=== PATIENT | female | born 1940 | race Caucasian/White ===

== ENCOUNTER 2019-06-08 10:24 | Outpatient (RCR) | payer MEDICARE, OTHER, MEDICAID, SELFPAY | END 2019-06-30 00:01 | LOC: LAB 10:24 | PROVIDERS: Family Provider Family Medicine; Visit Provider Family Medicine | DX: I10 Essential (primary) hypertension (principal); E03.9 Hypothyroidism, unspecified | CPT/HCPCS: 36415; 80053; 80061; 84439; 84443; 85025 ==

== ENCOUNTER 2020-04-14 23:29 | Emergency (ER) | payer MEDICARE, MEDICAID, SELFPAY ==
[2020-04-14 23:31] VITALS: BP 126/87; PULSE 118; RESP 26; TEMP 39.9; O2SAT 90; BMI 27.8
--- NOTE | 2020-04-14 23:33 | XR_ITS ---
WS: [id number] Portable AP upright chest, 04/15/2020 Clinical Data: fever Comparison: Portable chest, 11/14/2015. Findings: No nodules, masses or effusions are seen. The heart is normal. The pulmonary vascularity is not increased. No pneumonia or pneumothorax is seen. The aortic arch and descending aorta show tortu osity. There are healed left third through fifth rib fractures. Monitor leads are on the chest wall. XR/XR chest 1V portable [id number] Impression: Atherosclerosis.
--- NOTE | 2020-04-14 23:33 | CTR_ITS ---
PROCEDURE INFORMATION: Exam: CT Abdomen And Pelvis With Contrast Exam date and time: 04/14/2020 12:09 AM Age: 79 years old Clinical indication: Fever TECHNIQUE: Imaging protocol: Computed tomography of the abdomen and pelvis with intravenous contrast. Radiation optimization: All CT scans at this facility use at least one of these dose optimization techniques: automated exposure control; mA and/or kV adjustment per patient size (includes targeted exams where dose is matched to clinical indication); or iterative reconstruction. Contrast material: OMNI 300; Contrast volume: 95 ml; Contrast route: INTRAVENOUS (IV); COMPARISON: No relevant prior studies available. RADIATION DOSE METRICS: Total DLP (mGy-cm): 1421.47 FINDINGS: Liver: Normal. No mass. Gallbladder and bile ducts: Normal. No calcified stones. No ductal dilation. Pancreas: Normal. No ductal dilation. Spleen: Normal. No splenomegaly. Adrenals: Normal. No mass. Kidneys and ureters: There is focal hypoattenuation and cortical irregularity seen within the upper pole of the left kidney posteriorly that likely represents scarring or chronic infarction. Stomach and bowel: Few diverticula are seen on the sigmoid colon. There are no inflammatory changes seen to suggest diverticulitis. Appendix: No evidence of appendicitis. Intraperitoneal space: Unremarkable. No free air. No significant fluid collection. Vasculature: Calcifications are seen within the abdominal aorta, iliac and femoral arteries bilaterally and within branches of the celiac trunk. Lymph nodes: Unremarkable. No enlarged lymph nodes. Urinary bladder: Unremarkable as visualized. Reproductive: There is a 1.5 x 1.5 x 1.8 cm hypoattenuation lesion seen within the uterine fundus anteriorly with central calcification possibly representing a calcifying uterine fibroid. Bones/joints: There is mild deformity of the superior endplates of L2 and L3 vertebral bodies likely representing chronic mild compression fractures. Soft tissues: Unremarkable. CT/CT abdomen pelvis w con* [id number] IMPRESSION: 1. Hypoattenuation lesions seen within the uterine fundus measuring up to 1.8 cm containing central calcification possibly representing a calcifying uterine fibroid. 2. Mild diverticulosis of the sigmoid colon 3. Focal cortical irregularity and hypoattenuation within the upper pole of the left kidney likely represents chronic scarring. Radiation Dose CTDIVOL = (mGy): DLP = 1421.47 (mGy-cm)
--- NOTE | 2020-04-14 23:37 | W.ED.ABDPA2 ---
HPI - Abdominal Pain General: Chief Complaint: Fever Stated Complaint: n/v fever Time Seen by Provider: 04/14/20 23:30 Mode of arrival: EMS Limitations: altered mental status History of Present Illness: HPI narrative: Juana is an 79-year-old female here from senior care. Patient has a history of stroke and is nonverbal and bedbound. No history is available from her. Per EMS senior care staff states she started vomiting tonight they checked her temperature and it was 103. Patient is unable to complain of any pain due to being nonverbal. States she has had no vomiting with them. She has had no cough. Review of Systems General: Reports: ROS unobtainable due to medical condition and ROS unobtainable due to mental status Physical Exam Const: COMMON NORMALS: no acute distress; negative for patient oriented x3 GENERAL APPEARANCE: ill appearing HENMT: COMMON NORMALS: normocephalic and atraumatic HEAD & SCALP: normocephalic and atraumatic Eye: COMMON NORMALS: Equal, round and reactive pupils present and EOMs intact bilaterally PUPIL: Yes Equal, round and reactive pupils present Neck/C-Spine: COMMON NORMALS: full ROM and supple Chest: COMMONS NORMALS: normal inspection of the chest and normal palpation of entire chest wall Resp: COMMON NORMALS: normal respiratory effort, No retractions, No use of accessory muscles and clear to auscultation bilaterally AUSCULTATION: clear to auscultation bilaterally Cardio: COMMON NORMALS: regular rate, regular rhythm and No murmurs present (Cardio) RATE: regular rate RHYTHM: regular rhythm GI: COMMON NORMALS: Normal to inspection, nondistended, normoactive bowel sounds present, Soft to palpation, non-tender and no masses PALPATION: Yes Soft to palpation Extremity: COMMON NORMALS: normal to inspection and full ROM Neuro: COMMON NORMALS: negative for patient oriented x3 Psych: COMMON NORMALS: cooperative; negative for mental status grossly normal and negative for Normal thought process present THOUGHT PROCESS: abnormal Skin: COMMON NORMALS: no rashes or lesions noted and no wounds GENERAL SKIN EXAM: no rashes or lesions noted Course Vital Signs: Vital signs: Vital Signs Temperature 101.2 F H 04/15/20 01:14 Pulse Rate 94 04/15/20 02:34 Respiratory Rate 18 04/15/20 02:34 Blood Pressure 121/78 04/15/20 02:34 Pulse Oximetry 99 04/15/20 01:14 MDM - Abdominal Pain MDM Narrative: Medical decision making narrative: Juana presents here with fever and does have a urinary tract infection. Patient blood work here is normal and she is not septic. She is well-appearing here and stable for discharge back to the senior care on antibiotics. We will culture her urine. senior living is to have her follow-up with her PCP in 3 to 5 days and return to ER if worsening. Lab Data: Labs: Lab Results 04/14/20 04/14/20 04/15/20 Range/Units 23:55 23:55 00:02 WBC 6.1 (4.0-10.0) 10^3/ uL RBC 5.33 H (4.1-5.3) 10^6/u L Hgb 16.2 H (11.5-15.3) g/dL Hct 49.4 H (37.0-47.0) % MCV 92.7 (81-99) fL MCH 30.4 (28.0-34.0) pg MCHC 32.8 (30.0-36.0) g/dL RDW 12.7 (12.1-15.1) % Plt Count 173 (130-400) 10^3/c mm MPV 11.8 H (7.4-10.4) fL Neut % (Auto) 96.0 % Lymph % (Auto) 2.5 % Ventura % (Auto) 0.5 % Eos % (Auto) 0.0 % Baso % (Auto) 0.7 % Neut # (Auto) 5.82 (1.8-7.7) 10^3/u L Lymph # (Auto) 0.2 L (0.8-4.8) 10^3/u L Ventura # (Auto) 0.0 L (0.2-0.9) 10^3/u L Eos # (Auto) 0.0 (0.0-0.8) 10^3/u L Baso # (Auto) 0.0 (0.0-0.1) 10^3/u L Nucleated RBC % (a uto) 0 % Nucleated RBCs # 0.0 /100WBC Sodium 139 (136-145) mmol/L Potassium 3.6 (3.5-5.1) mmol/L Chloride 104 (98-107) mmol/L Carbon Dioxide 22 (22-29) mmol/L Anion Gap 16.6 (5-19) BUN 11 (8-23) mg/dL Creatinine 0.6 (0.5-0.9) mg/dL GFR Calculation Not Reportable Glucose 122 H (65-115) mg/dL Calculated Osmolal ity 289 (285-295) mOsm/k g Lactate 2.2 (0.5-2.2) mmol/L Calcium 9.1 (8.5-10.5) mg/dL Total Bilirubin 1.1 (0.15-1.2) mg/dL AST 62 H (0-32) U/L ALT 36 H (0-33) U/L Alkaline Phosphata se 189 H (35-105) IU/L Total Protein 6.6 (6.6-8.7) g/dL Albumin 3.8 (3.5-5.2) g/dL Globulin 2.8 (1.3-4.6) g/dL Urine Color (Yellow) Urine Appearance (CLEAR) Urine pH (5-7) Ur Specific Gravit y (1.005-1.030) Urine Protein (Negative) Urine Glucose (UA) (Normal) Urine Ketones (Negative) Urine Blood (Negative) Urine Nitrate (Negative) Urine Bilirubin (Negative) Urine Urobilinogen (Negative) mg/dL Ur Leukocyte Odalys ase (Negative) Urine RBC (0-2) /hpf Urine WBC (0-5) /hpf Ur Squamous Epith Cells (0-5) /hpf Amorphous Sediment Urine Bacteria (NONE) /hpf Urine Mucus /hpf SARS-CoV-2 Ag (Rap id) (Negative) 04/15/20 04/15/20 Range/Units 00:17 00:22 WBC (4.0-10.0) 10^3/ uL RBC (4.1-5.3) 10^6/u L Hgb (11.5-15.3) g/dL Hct (37.0-47.0) % MCV (81-99) fL MCH (28.0-34.0) pg MCHC (30.0-36.0) g/dL RDW (12.1-15.1) % Plt Count (130-400) 10^3/c mm MPV (7.4-10.4) fL Neut % (Auto) % Lymph % (Auto) % Ventura % (Auto) % Eos % (Auto) % Baso % (Auto) % Neut # (Auto) (1.8-7.7) 10^3/u L Lymph # (Auto) (0.8-4.8) 10^3/u L Ventura # (Auto) (0.2-0.9) 10^3/u L Eos # (Auto) (0.0-0.8) 10^3/u L Baso # (Auto) (0.0-0.1) 10^3/u L Nucleated RBC % (a uto) % Nucleated RBCs # /100WBC Sodium (136-145) mmol/L Potassium (3.5-5.1) mmol/L Chloride (98-107) mmol/L Carbon Dioxide (22-29) mmol/L Anion Gap (5-19) BUN (8-23) mg/dL Creatinine (0.5-0.9) mg/dL GFR Calculation Glucose (65-115) mg/dL Calculated Osmolal ity (285-295) mOsm/k g Lactate (0.5-2.2) mmol/L Calcium (8.5-10.5) mg/dL Total Bilirubin (0.15-1.2) mg/dL AST (0-32) U/L ALT (0-33) U/L Alkaline Phosphata se (35-105) IU/L Total Protein (6.6-8.7) g/dL Albumin (3.5-5.2) g/dL Globulin (1.3-4.6) g/dL Urine Color Yellow (Yellow) Urine Appearance Cloudy (CLEAR) Urine pH 5 (5-7) Ur Specific Gravit y 1.005 (1.005-1.030) Urine Protein Neg (Negative) Urine Glucose (UA) Norm (Normal) Urine Ketones 1+ H (Negative) Urine Blood 3+ H (Negative) Urine Nitrate Positive H (Negative) Urine Bilirubin 1+ H (Negative) Urine Urobilinogen 4 H (Negative) mg/dL Ur Leukocyte Odalys ase 2+ H (Negative) Urine RBC 0-4 H (0-2) /hpf Urine WBC 80-100 H (0-5) /hpf Ur Squamous Epith Cells 5-10 H (0-5) /hpf Amorphous Sediment Not Reportable Urine Bacteria 2+ H (NONE) /hpf Urine Mucus 2+ /hpf SARS-CoV-2 Ag (Rap id) Negative (Negative) Imaging Data ^: CT Abd/Pel: Attestation: I personally reviewed and interpreted this imaging study as follows: Radiologist's impression: [facility] [address] [place] [address] CT Scan Report Signed Patient: Juana Ruiz Unit #: [id number] : 1940 Age/Sex: 79 / F ADM Date: 04/14/20 Loc: ER Room/Bed: Attending Dr: Ordering Provider/Ordering MD: Ham Booth MD Date of Service: 04/14/20 Procedure(s): CT abdomen pelvis w con* [id number] Accession Number(s): [id number] Report Number: [id number] PROCEDURE INFORMATION: Exam: CT Abdomen And Pelvis With Contrast Exam date and time: 04/14/2020 12:09 AM Age: 79 years old Clinical indication: Fever TECHNIQUE: Imaging protocol: Computed tomography of the abdomen and pelvis with intravenous contrast. Radiation optimization: All CT scans at this facility use at least one of these dose optimization techniques: automated exposure control; mA and/or kV adjustment per patient size (includes targeted exams where dose is matched to clinical indication); or iterative reconstruction. Contrast material: OMNI 300; Contrast volume: 95 ml; Contrast route: INTRAVENOUS (IV); COMPARISON: No relevant prior studies available. RADIATION DOSE METRICS: Total DLP (mGy-cm): 1421.47 FINDINGS: Liver: Normal. No mass. Gallbladder and bile ducts: Normal. No calcified stones. No ductal dilation. Pancreas: Normal. No ductal dilation. Spleen: Normal. No splenomegaly. Adrenals: Normal. No mass. Kidneys and ureters: There is focal hypoattenuation and cortical irregularity seen within the upper pole of the left kidney posteriorly that likely represents scarring or chronic infarction. Stomach and bowel: Few diverticula are seen on the sigmoid colon. There are no inflammatory changes seen to suggest diverticulitis. Appendix: No evidence of appendicitis. Intraperitoneal space: Unremarkable. No free air. No significant fluid collection. Vasculature: Calcifications are seen within the abdominal aorta, iliac and femoral arteries bilaterally and within branches of the celiac trunk. Lymph nodes: Unremarkable. No enlarged lymph nodes. Urinary bladder: Unremarkable as visualized. Reproductive: There is a 1.5 x 1.5 x 1.8 cm hypoattenuation lesion seen within the uterine fundus anteriorly with central calcification possibly representing a calcifying uterine fibroid. Bones/joints: There is mild deformity of the superior endplates of L2 and L3 vertebral bodies likely representing chronic mild compression fractures. Soft tissues: Unremarkable. CT/CT abdomen pelvis w con* [id number] IMPRESSION: 1. Hypoattenuation lesions seen within the uterine fundus measuring up to 1.8 cm containing central calcification possibly representing a calcifying uterine fibroid. 2. Mild diverticulosis of the sigmoid colon 3. Focal cortical irregularity and hypoattenuation within the upper pole of the left kidney likely represents chronic scarring. Discharge Plan Discharge Patient Disposition: Home Clinical Impression: Acute cystitis Qualifiers: Hematuria presence: without hematuria Qualified Code(s): N30.00 - Acute cystitis without hematuria Condition: Stable Prescriptions: New Zofran 4 mg tablet 4 mg PO QID PRN (Reason: nausea and vomiting) Qty: 14 RF: 0 Keflex 500 mg capsule 500 mg PO Q6H 7 Days Qty: 28 RF: 0 Discharge Orders: Discharge Order (Routine); Ordered 04/15/20 Ordered By: Ham Booth Discharge Diet: Advance as tolerated Discharge Activity: Resume usual activity Patient Instructions: Urinary Tract Infection in Women (ED) Discharge Date/Time: 04/15/20 03:11 Coding Level of Care Code ED Special Delivery Messenger for Chg Fwd Exam Comprehensive
[2020-04-15 00:14] LABS: Basophils % 0.7 %; Hematocrit 49.4 % (37.0-47.0); Hemoglobin 16.2 g/dL (11.5-15.3); Lymphocytes # 0.2 10^3/uL (0.8-4.8); Lymphocytes % 2.5 %; Mean Corpuscular HGB Conc 32.8 g/dL (30.0-36.0); Mean Corpuscular Hemoglobin 30.4 pg (28.0-34.0); Mean Corpuscular Volume 92.7 fL (81-99); Mean Platelet Volume 11.8 fL (7.4-10.4); Monocytes % 0.5 %; Neutrophils # 5.82 10^3/uL (1.8-7.7); Nucleated Red Blood Cells % 0 %; Platelet Count 173 10^3/cmm (130-400); Red Blood Count 5.33 10^6/uL (4.1-5.3); Red Cell Distribution Width 12.7 % (12.1-15.1); White Blood Count 6.1 10^3/uL (4.0-10.0)
[2020-04-15] MEDS: sodium chloride 0.9% 1,000 ML 999 ML IV (00:24)
[2020-04-15] MEDS: ondansetron 2 mg/ML SDV 2 mL 4 MG IVP (00:24)
[2020-04-15] MEDS: acetaminophen 650 mg Supp PR (00:24)
[2020-04-15 00:25] VITALS: BP 123/87; PULSE 109; RESP 20; O2SAT 96
[2020-04-15 00:35] LABS: Lactate (Lactic Acid level) 2.2 mmol/L (0.5-2.2)
[2020-04-15 00:39] LABS: Alanine Aminotransferase 36 U/L (0-33); Albumin Level 3.8 g/dL (3.5-5.2); Alkaline Phosphatase 189 IU/L (35-105); Blood Urea Nitrogen 11 mg/dL (8-23); Calcium 9.1 mg/dL (8.5-10.5); Carbon Dioxide 22 mmol/L (22-29); Chloride 104 mmol/L (98-107); Creatinine Clr Calc Pharmacy 57.1094; Globulin 2.8 g/dL (1.3-4.6); Glucose 122 mg/dL (65-115); Osmolality Calculated 289 mOsm/kg (285-295); Sodium 139 mmol/L (136-145); Total Bilirubin 1.1 mg/dL (0.15-1.2); Total Protein 6.6 g/dL (6.6-8.7)
[2020-04-15 00:42] LABS: Urine Appearance Cloudy (CLEAR); Urine Color Yellow (Yellow); pH Urine 5 (5-7)
[2020-04-15 00:43] LABS: Add Urine Microscopic? YES; Bilirubin Urine 1+ (Negative); Blood Urine 3+ (Negative); Glucose Urine UA Norm (Normal); Ketones Urine 1+ (Negative); Leukocyte Esterase Urine 2+ (Negative); Nitrate Urine Positive (Negative); Protein Urine Neg (Negative); Specific Gravity, Urine 1.005 (1.005-1.030); Urobilinogen Urine 4 mg/dL (Negative)
[2020-04-15 00:44] LABS: RBC Urine 0-4 /hpf (0-2); WBC Urine 80-100 /hpf (0-5)
[2020-04-15 00:45] LABS: Add Urine Culture? Yes; Bacteria Urine 2+ /hpf; Mucus Urine 2+ /hpf
[2020-04-15 00:47] LABS: SARS Covid-2 Antigen Negative (Negative)
[2020-04-15 00:58] LABS: Anion Gap 16.6 (5-19); Aspartate Amino Transferase 62 U/L (0-32); Potassium 3.6 mmol/L (3.5-5.1)
[2020-04-15] MEDS: cefTRIAXone 1,000 MG in sodium chloride 0.9% (plus) 50 ML 100 MG IV (01:04)
[2020-04-15 01:14] VITALS: BP 115/76; PULSE 108; RESP 18; TEMP 38.4; O2SAT 99
[2020-04-15 02:34] VITALS: BP 121/78; PULSE 94; RESP 18
--- NOTE | 2020-04-15 04:53 | PC.SOCIAL ---
Patient seen in ED for initial assessment. She lives at [facility], she has been there for several years. She was on services with [facility] at some point but according to SNF staff she is not currently on service. Advanced directive in paper chart. Being discharged back to facility.
[2020-04-16] MEDS: iohexol 300 mg/mL 100 mL Btl IV (11:57)
== END 2020-04-15 03:11 | disposition home or self-care (01) ==
PROVIDERS: Emergency Provider Emergency Medicine
DX: N30.00 Acute cystitis without hematuria (principal)
CPT/HCPCS: 12345; 36415; 71045; 74177; 80053; 81001; 83605; 85025; 87040; 87077; 87086; 87186; 87426; 96365; 96375; 99283; 99284; J0696; J2405; J7030

== ENCOUNTER 2020-04-15 18:00 | Inpatient (IN) | payer MEDICARE, MEDICAID, SELFPAY ==
[2020-04-15 18:09] VITALS: BP 95/61; PULSE 85; RESP 22; TEMP 37.2; O2SAT 94; BMI 28.3
--- NOTE | 2020-04-15 18:15 | XRR_ITS ---
PROCEDURE INFORMATION: Exam: XR Chest, 1 View Exam date and time: 04/15/2020 6:17 PM Age: 79 years old Clinical indication: Patient HX: Fever; Sepsis? . PT is not answering history questions. TECHNIQUE: Imaging protocol: XR of the chest Views: 1 view. COMPARISON: CR XR chest 1V portable [id number] 04/15/2020 12:49 AM FINDINGS: Lungs: Mild senile fibrosis. No consolidation. Pleural space: Unremarkable. No pleural effusion. No pneumothorax. Heart/Mediastinum: Mild cardiomegaly with arteriosclerosis. Bones/joints: Scoliotic curvature of the spine. Old left humeral head neck fracture. Age-appropriate degenerative disease. Old left rib fractures.- XR/XR chest 1V portable [id number] IMPRESSION: No acute findings.
--- NOTE | 2020-04-15 18:17 | ECG_ITS ---
[facility] Test Date: 2020-04-15 Pat Name: Juana Ruiz Department: Room: Gender: Female Manager Project Management: : 1940 Requested By: Юлия Marie Order Number: [id number] Berg MD: Elidia Dunbar M.D. Measurements Intervals [place] Rate: 84 P: 24 PA: 184 QRS: -50 QRSD: 118 T: -13 QT: 378 QTc: 448 Interpretive Statements SINUS RHYTHM INCOMPLETE RIGHT BUNDLE BRANCH BLOCK VOLTAGE CRITERIA FOR LVH POSSIBLE ANTERIOR MYOCARDIAL INFARCTION, PROBABLY OLD INFERIOR MYOCARDIAL INFARCTION,OF INDETERMINATE AGE Compared to ECG 11/14/2015 12:08:44 Low QRS voltage now present Incomplete right bundle-branch block now present Left ventricular hypertrophy now present Myocardial infarct finding now present Intraventricular conduction delay no longer present Electronically Signed On 04-15-2020 23:25:44 CDT by Elidia Dunbar M.D. [id number]
[2020-04-15] MEDS: vancomycin 1,000 MG in sodium chloride 0.9% 250 ML 250 MG IV (18:41)
[2020-04-15] MEDS: lactated ringers 1,000 ML 999 ML IV ×2 (18:41→19:47)
--- NOTE | 2020-04-15 18:54 | W.ED.RECABL ---
HPI - Recheck/Abnormal Lab/Rx General: Chief Complaint: Recheck/Abnormal Lab/Rx Stated Complaint: SEPSIS Time Seen by Provider: 04/15/20 18:11 Source: patient and EMS Mode of arrival: EMS Limitations: altered mental status History of Present Illness: HPI narrative: Patient is very sedated and hard to get history from. Patient was apparently here last night for symptoms of urinary tract infection. She started on Keflex and sent back to the snf. [facility] reports a fever of 103 along with decreasing mental status. Please see last night's note for more details. Unclear whether the patient was ever given a dose of Keflex. Review of Systems General: Reports: ROS unobtainable due to mental status Physical Exam Const: COMMON NORMALS: no acute distress, patient oriented x3 and alert GENERAL APPEARANCE: cooperative HENMT: COMMON NORMALS: normocephalic, atraumatic, external ears normal, EAC's normal and Normal external nose present HEAD & SCALP: normal to inspection, normocephalic and atraumatic FACE & SINUS: normal facial exam and face symmetric NOSE: Normal external nose present and Normal nares present EXTERNAL EAR: Yes external ears normal EXTERNAL AUDITORY CANAL: EAC's normal MOUTH: Normal oral and palatal mucosa present, lip normal and tongue normal Eye: COMMON NORMALS: Equal, round and reactive pupils present and conjunctivae normal GENERAL EYE: appearance normal, both eyes and all related structures ALIGNMENT: Yes alignment normal PERIORBITAL: periorbital findings normal EYELID: eyelids normal CONJUNCTIVA: Yes conjunctivae normal SCLERA: sclerae normal PUPIL: Yes Equal, round and reactive pupils present Neck/C-Spine: COMMON NORMALS: full ROM, no lymphadenopathy, supple, no meningeal signs and no JVD GENERAL: Yes normal visual inspection and Yes trachea midline Chest: COMMONS NORMALS: normal inspection of the chest and normal palpation of entire chest wall Resp: COMMON NORMALS: normal respiratory effort, No retractions, No use of accessory muscles and clear to auscultation bilaterally EFFORT & INSPECTION: Yes able to speak in complete sentences and Yes symmetric chest movement AUSCULTATION: clear to auscultation bilaterally, no crackles, no rales, no rhonchi and no wheezes Cardio: COMMON NORMALS: no JVD, regular rate, regular rhythm, S1 normal heart sound present and S2 normal heart sound present RATE: regular rate RHYTHM: regular rhythm HEART SOUNDS: S1 normal heart sound present, S2 normal heart sound present, no click, no gallops, no murmurs and no rubs GI: COMMON NORMALS: Soft to palpation and No hepatosplenomegaly present PALPATION: Yes Soft to palpation, No Tenderness to palpation present (GI), No Guarding due to palpation present (GI), No Rigid due to palpation, Yes No hepatosplenomegaly present, No Hernia present, No Palpable mass present and No Pulsatile mass present : COMMON NORMALS: Yes no CVA tenderness BLADDER/KIDNEY EXAM: Yes no CVA tenderness EXTERNAL FEMALE EXAM: No Hernia present Back/Pelvis: COMMON NORMALS: no CVA tenderness, thoracic and lumbar spine normal to inspection, no thoracic nor lumbar tenderness and thoraco-lumbar ROM normal Extremity: COMMON NORMALS: normal to inspection, full ROM, capillary refill normal, no joint enlargement, no clubbing, cyanosis or edema and no calf tenderness Neuro: COMMON NORMALS: patient oriented x3, CN's II-XII intact bilaterally, moves all extremities, no focal motor deficits and no sensory deficits noted SENSORIUM/ORIENTATION: Yes alert MENINGEAL SIGNS: Yes no meningeal signs SPEECH: speech normal Skin: COMMON NORMALS: no rashes or lesions noted, turgor normal, no jaundice, no petechiae and no mottling GENERAL SKIN EXAM: no rashes or lesions noted and turgor normal Course Vital Signs: Vital signs: Vital Signs Temperature 99.0 F 04/15/20 18:09 Pulse Rate 89 04/15/20 21:06 Respiratory Rate 24 H 04/15/20 21:06 Blood Pressure 109/64 04/15/20 21:06 Pulse Oximetry 93 04/15/20 21:06 MDM - Recheck/Abnormal Lab/Rx MDM Narrative: Medical decision making narrative: Patient appears septic from a urinary tract infection. She was placed on IV antibiotics by me. Give her a dose of Primaxin as her cultures are pending. Patient did have positive blood cultures for gram-negative rods. Case was endorsed to Dr. Lizama and he will arrange things further for the floor. Lab Data: Labs: Lab Results 04/15/20 04/15/20 04/15/20 Range/Units 18:50 18:58 18:58 WBC 22.5 H (4.0-10.0) 10^3/ uL RBC 4.32 (4.1-5.3) 10^6/u L Hgb 13.2 (11.5-15.3) g/dL Hct 42.1 (37.0-47.0) % MCV 97.5 D (81-99) fL MCH 30.6 (28.0-34.0) pg MCHC 31.4 (30.0-36.0) g/dL RDW 13.2 (12.1-15.1) % Plt Count 138 (130-400) 10^3/c mm MPV 12.0 H (7.4-10.4) fL Neut % (Auto) 86.7 % Lymph % (Auto) 5.8 % [place] % (Auto) 5.9 % Eos % (Auto) 0.2 % Baso % (Auto) 0.4 % Neut # (Auto) 19.53 H (1.8-7.7) 10^3/u L Lymph # (Auto) 1.3 (0.8-4.8) 10^3/u L [place] # (Auto) 1.3 H (0.2-0.9) 10^3/u L Eos # (Auto) 0.0 (0.0-0.8) 10^3/u L Baso # (Auto) 0.1 (0.0-0.1) 10^3/u L Nucleated RBC % (a uto) 0 % Nucleated RBCs # 0.0 /100WBC PT 15.30 H (12.1-14.9) SECO NDS INR 1.17 (0.8-1.2) Sodium (136-145) mmol/L Potassium (3.5-5.1) mmol/L Chloride (98-107) mmol/L Carbon Dioxide (22-29) mmol/L Anion Gap (5-19) BUN (8-23) mg/dL Creatinine (0.5-0.9) mg/dL GFR Calculation Glucose (65-115) mg/dL Calculated Osmolal ity (285-295) mOsm/k g Lactic Acid (0.5-2.2) mmol/L Calcium (8.5-10.5) mg/dL Magnesium (1.7-2.3) mg/dL Total Bilirubin (0.15-1.2) mg/dL AST (0-32) U/L ALT (0-33) U/L Alkaline Phosphata se (35-105) IU/L Troponin T Baselin e (0-10) ng/L Troponin T 120 Min [place] (0-10) ng/L Delta Troponin T (0-10) ABS# Total Protein (6.6-8.7) g/dL Albumin (3.5-5.2) g/dL Globulin (1.3-4.6) g/dL Lipase (13-60) U/L Urine Color (Yellow) Urine Appearance (CLEAR) Urine pH (5-7) Ur Specific Gravit y (1.005-1.030) Urine Protein (Negative) Urine Glucose (UA) (Normal) Urine Ketones (Negative) Urine Blood (Negative) Urine Nitrate (Negative) Urine Bilirubin (Negative) Urine Urobilinogen (Negative) mg/dL Ur Leukocyte Odalys ase (Negative) Urine RBC (0-2) /hpf Urine WBC (0-5) /hpf Ur Squamous Epith Cells (0-5) /hpf Amorphous Sediment Urine Bacteria (NONE) /hpf Urine Mucus /hpf Influenza Type A A g Negative (Negative) Influenza Type B A g Negative (Negative) 04/15/20 04/15/20 04/15/20 Range/Units 18:58 18:58 18:58 WBC (4.0-10.0) 10^3/ uL RBC (4.1-5.3) 10^6/u L Hgb (11.5-15.3) g/dL Hct (37.0-47.0) % MCV (81-99) fL MCH (28.0-34.0) pg MCHC (30.0-36.0) g/dL RDW (12.1-15.1) % Plt Count (130-400) 10^3/c mm MPV (7.4-10.4) fL Neut % (Auto) % Lymph % (Auto) % [place] % (Auto) % Eos % (Auto) % Baso % (Auto) % Neut # (Auto) (1.8-7.7) 10^3/u L Lymph # (Auto) (0.8-4.8) 10^3/u L [place] # (Auto) (0.2-0.9) 10^3/u L Eos # (Auto) (0.0-0.8) 10^3/u L Baso # (Auto) (0.0-0.1) 10^3/u L Nucleated RBC % (a uto) % Nucleated RBCs # /100WBC PT (12.1-14.9) SECO NDS INR (0.8-1.2) Sodium 139 (136-145) mmol/L Potassium 4.2 (3.5-5.1) mmol/L Chloride 104 (98-107) mmol/L Carbon Dioxide 25 (22-29) mmol/L Anion Gap 14.2 (5-19) BUN 14 (8-23) mg/dL Creatinine 0.7 (0.5-0.9) mg/dL GFR Calculation Not Reportable Glucose 95 (65-115) mg/dL Calculated Osmolal ity 288 (285-295) mOsm/k g Lactic Acid 2.0 (0.5-2.2) mmol/L Calcium 8.4 L (8.5-10.5) mg/dL Magnesium 2.1 (1.7-2.3) mg/dL Total Bilirubin 0.5 (0.15-1.2) mg/dL AST 28 (0-32) U/L ALT 29 (0-33) U/L Alkaline Phosphata se 128 H (35-105) IU/L Troponin T Baselin e 22 H (0-10) ng/L Troponin T 120 Min [place] (0-10) ng/L Delta Troponin T (0-10) ABS# Total Protein 5.3 L (6.6-8.7) g/dL Albumin 2.9 L (3.5-5.2) g/dL Globulin 2.4 (1.3-4.6) g/dL Lipase 14 (13-60) U/L Urine Color (Yellow) Urine Appearance (CLEAR) Urine pH (5-7) Ur Specific Gravit y (1.005-1.030) Urine Protein (Negative) Urine Glucose (UA) (Normal) Urine Ketones (Negative) Urine Blood (Negative) Urine Nitrate (Negative) Urine Bilirubin (Negative) Urine Urobilinogen (Negative) mg/dL Ur Leukocyte Odalys ase (Negative) Urine RBC (0-2) /hpf Urine WBC (0-5) /hpf Ur Squamous Epith Cells (0-5) /hpf Amorphous Sediment Urine Bacteria (NONE) /hpf Urine Mucus /hpf Influenza Type A A g (Negative) Influenza Type B A g (Negative) 04/15/20 04/15/20 Range/Units 19:06 20:50 WBC (4.0-10.0) 10^3/ uL RBC (4.1-5.3) 10^6/u L Hgb (11.5-15.3) g/dL Hct (37.0-47.0) % MCV (81-99) fL MCH (28.0-34.0) pg MCHC (30.0-36.0) g/dL RDW (12.1-15.1) % Plt Count (130-400) 10^3/c mm MPV (7.4-10.4) fL Neut % (Auto) % Lymph % (Auto) % [place] % (Auto) % Eos % (Auto) % Baso % (Auto) % Neut # (Auto) (1.8-7.7) 10^3/u L Lymph # (Auto) (0.8-4.8) 10^3/u L [place] # (Auto) (0.2-0.9) 10^3/u L Eos # (Auto) (0.0-0.8) 10^3/u L Baso # (Auto) (0.0-0.1) 10^3/u L Nucleated RBC % (a uto) % Nucleated RBCs # /100WBC PT (12.1-14.9) SECO NDS INR (0.8-1.2) Sodium (136-145) mmol/L Potassium (3.5-5.1) mmol/L Chloride (98-107) mmol/L Carbon Dioxide (22-29) mmol/L Anion Gap (5-19) BUN (8-23) mg/dL Creatinine (0.5-0.9) mg/dL GFR Calculation Glucose (65-115) mg/dL Calculated Osmolal ity (285-295) mOsm/k g Lactic Acid (0.5-2.2) mmol/L Calcium (8.5-10.5) mg/dL Magnesium (1.7-2.3) mg/dL Total Bilirubin (0.15-1.2) mg/dL AST (0-32) U/L ALT (0-33) U/L Alkaline Phosphata se (35-105) IU/L Troponin T Baselin e (0-10) ng/L Troponin T 120 Min [place] 23.20 H (0-10) ng/L Delta Troponin T 1.20 (0-10) ABS# Total Protein (6.6-8.7) g/dL Albumin (3.5-5.2) g/dL Globulin (1.3-4.6) g/dL Lipase (13-60) U/L Urine Color Yellow (Yellow) Urine Appearance Sl hazy (CLEAR) Urine pH 5 (5-7) Ur Specific Gravit y 1.020 (1.005-1.030) Urine Protein Neg (Negative) Urine Glucose (UA) Norm (Normal) Urine Ketones 1+ H (Negative) Urine Blood 3+ H (Negative) Urine Nitrate Positive H (Negative) Urine Bilirubin 1+ H (Negative) Urine Urobilinogen 8 H (Negative) mg/dL Ur Leukocyte Odalys ase Trace H (Negative) Urine RBC 10-15 H (0-2) /hpf Urine WBC 15-25 H (0-5) /hpf Ur Squamous Epith Cells 0-4 H (0-5) /hpf Amorphous Sediment Not Reportable Urine Bacteria 2+ H (NONE) /hpf Urine Mucus Trace /hpf Influenza Type A A g (Negative) Influenza Type B A g (Negative) Discharge Plan Discharge Patient Disposition: Admitted As Inpatient Admit Provider: Dyan Lizama Clinical Impression: Sepsis, Acute UTI Condition: Stable Coding Level of Care Code ED Retail Maintenance Technician for [facility] Fwd Exam Comprehensive
[2020-04-15 18:56] VITALS: BP 100/64; PULSE 85; RESP 18; O2SAT 94
[2020-04-15 19:11] LABS: Basophils # 0.1 10^3/uL (0.0-0.1); Basophils % 0.4 %; Eosinophils % 0.2 %; Hematocrit 42.1 % (37.0-47.0); Hemoglobin 13.2 g/dL (11.5-15.3); Lymphocytes # 1.3 10^3/uL (0.8-4.8); Lymphocytes % 5.8 %; Mean Corpuscular HGB Conc 31.4 g/dL (30.0-36.0); Mean Corpuscular Hemoglobin 30.6 pg (28.0-34.0); Mean Corpuscular Volume 97.5 fL (81-99); Monocytes # 1.3 10^3/uL (0.2-0.9); Monocytes % 5.9 %; Neutrophils # 19.53 10^3/uL (1.8-7.7); Neutrophils % 86.7 %; Nucleated Red Blood Cells % 0 %; Platelet Count 138 10^3/cmm (130-400); Red Blood Count 4.32 10^6/uL (4.1-5.3); Red Cell Distribution Width 13.2 % (12.1-15.1); White Blood Count 22.5 10^3/uL (4.0-10.0)
[2020-04-15 19:25] LABS: Influenza A by IFA Negative (Negative); Influenza B by IFA Negative (Negative)
[2020-04-15 19:30] LABS: Alanine Aminotransferase 29 U/L (0-33); Albumin Level 2.9 g/dL (3.5-5.2); Alkaline Phosphatase 128 IU/L (35-105); Anion Gap 14.2 (5-19); Aspartate Amino Transferase 28 U/L (0-32); Blood Urea Nitrogen 14 mg/dL (8-23); Calcium 8.4 mg/dL (8.5-10.5); Carbon Dioxide 25 mmol/L (22-29); Chloride 104 mmol/L (98-107); Globulin 2.4 g/dL (1.3-4.6); Glucose 95 mg/dL (65-115); Lipase 14 U/L (13-60); Magnesium 2.1 mg/dL (1.7-2.3); Osmolality Calculated 288 mOsm/kg (285-295); Potassium 4.2 mmol/L (3.5-5.1); Sodium 139 mmol/L (136-145); Total Bilirubin 0.5 mg/dL (0.15-1.2); Total Protein 5.3 g/dL (6.6-8.7)
[2020-04-15 19:33] LABS: INR 1.17 (0.8-1.2)
[2020-04-15 19:34] LABS: Troponin(5th) Baseline 22 ng/L (0-10)
[2020-04-15 19:49] LABS: Bilirubin Urine 1+ (Negative); Blood Urine 3+ (Negative); Glucose Urine UA Norm (Normal); Ketones Urine 1+ (Negative); Leukocyte Esterase Urine Trace (Negative); Nitrate Urine Positive (Negative); Protein Urine Neg (Negative); Urine Appearance SL Hazy (CLEAR); Urine Color Yellow (Yellow); Urobilinogen Urine 8 mg/dL (Negative); pH Urine 5 (5-7)
[2020-04-15 19:51] LABS: Bacteria Urine 2+ /hpf; Mucus Urine TRACE /hpf; Squamous Epithelial Cell Urine 0-4 /hpf (0-5); WBC Urine 15-25 /hpf (0-5)
[2020-04-15 19:52] LABS: Add Urine Culture? Yes
--- NOTE | 2020-04-15 20:17 | ECG_ITS ---
[facility] Test Date: 2020-04-15 Pat Name: Juana Ruiz Department: Room: Gender: Female Detonator Maker: : [id number] Requested By: Юлия Marie Order Number: [id number] Berg MD: Elidia Dunbar M.D. Measurements Intervals [place] Rate: 89 P: 46 NH: 189 QRS: -48 QRSD: 131 T: -9 QT: 391 QTc: 476 Interpretive Statements SINUS RHYTHM INTRAVENTRICULAR CONDUCTION DELAY [130+ ms QRS DURATION] VOLTAGE CRITERIA FOR LVH [MEETS CRITERIA IN ONE OF: R(aVL), S(V1), R(V5), R(V5/V6)+S(V1)] POSSIBLE ANTERIOR MYOCARDIAL INFARCTION [30 ms Q WAVE IN V3/V4, OR R < 0.2 mV IN V4], PROBABLY OLD INFERIOR MYOCARDIAL INFARCTION [40+ ms Q WAVE AND/OR ST/T ABNORMALITY IN II/aVF], PROBABLY OLD Compared to ECG 04/15/2020 18:51:12 Intraventricular conduction delay now present Incomplete right bundle-branch block no longer present Myocardial infarct finding still present Electronically Signed On 04-15-2020 23:36:56 CDT by Elidia Dunbar M.D. [id number]
[2020-04-15 21:06] VITALS: BP 109/64; PULSE 89; RESP 24; O2SAT 93
--- NOTE | 2020-04-15 21:44 | P.HP_ITS ---
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 I have reviewed her records from [facility] and [facility] for report as well, patient is mostly incontinent, does communicate in simple sentences, can make her needs known, she eats dysphagia diet. Covid test was done today which was negative. Diagnosis in the ER revealed soft blood pressure, afebrile, leukocytosis, she is septic with positive blood cultures which grew gram-negative rods, she has been given vancomycin and imipenem in the ER, abnormal UA reviewed, at the time of my evaluation patient is able to tell me her name, date of , she is oriented to herself, able to protect her airways. intermediate nurse did not know about the medications and asked to review the notes, and her records I do not see any medication for Parkinson's, noticed omeprazole 20 mg dose. Review of Systems General: Reports: ROS unobtainable due to medical condition (Dementia ) Medications/Allergies Home Medications Medication Instructions Recorded Confirmed Last Taken Type cephalexin [Keflex] 500 mg PO Q6H 7 Days #28 cap 04/15/20 Unknown Rx ondansetron HCl [Zofran] 4 mg PO QID PRN #14 tab 04/15/20 Unknown Rx Allergies Allergy/AdvReac Type Severity Reaction Status Date / Time atorvastatin [From Lipitor] Allergy Unknown Verified 04/15/20 18:21 celecoxib [From Celebrex] Allergy Unknown Verified 04/15/20 18:21 etodolac Allergy Unknown Verified 04/15/20 18:21 gemfibrozil [From Lopid] Allergy Unknown Verified 04/15/20 18:21 PFSH Acute PFSH: Medical History Bedbound Constipation Dysphagia Parkinson's disease Spastic paresis Urinary incontinence Vascular dementia Surgical History No pertinent past surgical history Family History Other No pertinent family history Social History Smoking and tobacco status: never smoked Alcohol intake: never Substance/Drug Use: never Housing: Residential Vitals/I&O/Wt Last Vital Signs Temp 99.0 F 04/15/20 18:09 Pulse 89 04/15/20 21:06 Resp 24 H 04/15/20 21:06 BP 109/64 04/15/20 21:06 Pulse Ox 93 04/15/20 21:06 04/15/20 04/15/20 04/15/20 06:59 14:59 22:59 Intake Total 1100 / 1100 Balance 1100 / 1100 Weight last 48 hrs Weight 77.111 kg Physical Exam Narrative: EXAM NARRATIVE: Obese female, , appears more than stated age Prominent facial hair Does not look fluid overloaded or dehydrated No active respiratory distress, Does not appear to be in any kind of pain Noticed contracture of upper extremities, spastic paresis, No sacral decubitus ulcer No lower extremity edema gangrene or ulcer Au catheter draining concentrated urine S1, S2 no tachycardia or heart failure signs Lungs are clear to auscultation no adventitious rhonchi or crackles or wheezing EOMI, PERRLA Neurologically no focal deficit Abdomen soft, distended, bowel sound present Urinary Catheter Management^: Au: Cath Placed During This Visit: yes Reason for Continuing Indwelling Catheter: Accurate Measurement of Urinary Output in Critically Ill Patients Urinary Catheter Date of Insertion: 04/15/20 Urinary Catheter Time of Insertion: 18:57 Data : 04/15/20 18:58 04/15/20 18:58 Micro: Microbiology 04/15/20 18:54 Blood Culture - Preliminary Blood SPECIMEN COLLECTED 04/15/20 18:58 Blood Culture - Preliminary Blood SPECIMEN COLLECTED A&P Assessment and plan (1) Acute cystitis: Sepsis secondary to UTI Blood culture growing gram-negative rods I would continue imipenem for now Continue normal saline along antibiotics Discontinue vancomycin she has received 1 dose of vancomycin in the ER Repeat blood cultures UA reviewed No abnormal creatinine, Au catheter draining concentrated urine Systolic blood pressure ranging between 90-94mmhg Status: Acute Qualifiers: Hematuria presence: without hematuria Qualified Code(s): N30.00 - Acute cystitis without hematuria (2) Sepsis: Status: Acute Qualifiers: Sepsis acute organ dysfunction status: unspecified Sepsis type: sepsis due to unspecified organism Qualified Code(s): A41.9 - Sepsis, unspecified organism Additional A&P Information Parkinson's disease: I would continue Nikos Has cogwheel rigidity of lower extremities She is on dysphagia diet secondary to stroke in the past No acute decompensation for her vascular dementia, no active delirium DVT prophylaxis: Lovenox Dysphagia diet DNR/DNI Covid test done at the halfway was negative today Attestations Medical Necessity Statement*: Anticipating stay in the hospital course more than 2 midnights currently need IV antibiotics for sepsis with positive blood cultures and possible source UTI, Time Spent in Patient Care: 50mins, including checking her previous records, calling halfway and reviewing documents from halfway Coding Level of Care Code Acute Nut Grader for [facility] Fwd Diagnoses Acute cystitis N30.00 Hematuria presence: without hematuria Sepsis A41.9 Sepsis acute organ dysfunction status: unspecified Sepsis type: sepsis due to unspecified organism
[2020-04-15 23:00] VITALS: BP 94/56; PULSE 83; RESP 20; TEMP 37.3; O2SAT 92
--- NOTE | 2020-04-15 23:59 | PC.NURSE ---
This RN completed admission with help of AMBER Conley from [facility].
[2020-04-16] MEDS: enoxaparin 40 mg/0.4 mL Syringe SUBCUT ×2 (02:23→23:28)
[2020-04-16] MEDS: sodium chloride 0.9% 1,000 ML 75 ML IV ×2 (02:28→15:57)
[2020-04-16 03:15] VITALS: BP 102/73; PULSE 81; RESP 19; TEMP 37.2; O2SAT 95
[2020-04-16 05:18] LABS: Basophils # 0.1 10^3/uL (0.0-0.1); Basophils % 0.4 %; Eosinophils # 0.1 10^3/uL (0.0-0.8); Eosinophils % 0.8 %; Hemoglobin 12.1 g/dL (11.5-15.3); Lymphocytes # 1.3 10^3/uL (0.8-4.8); Lymphocytes % 7.9 %; Mean Corpuscular Hemoglobin 29.9 pg (28.0-34.0); Mean Corpuscular Volume 96.3 fL (81-99); Monocytes # 0.9 10^3/uL (0.2-0.9); Monocytes % 5.6 %; Neutrophils % 84.4 %; Nucleated Red Blood Cells % 0 %; Platelet Count 120 10^3/cmm (130-400); Red Blood Count 4.05 10^6/uL (4.1-5.3); Red Cell Distribution Width 13.2 % (12.1-15.1); White Blood Count 16.2 10^3/uL (4.0-10.0)
[2020-04-16 05:42] LABS: Anion Gap 10.7 (5-19); Blood Urea Nitrogen 13 mg/dL (8-23); Calcium 8.4 mg/dL (8.5-10.5); Carbon Dioxide 25 mmol/L (22-29); Chloride 108 mmol/L (98-107); Glucose 90 mg/dL (65-115); Osmolality Calculated 290 mOsm/kg (285-295); Potassium 3.7 mmol/L (3.5-5.1); Sodium 140 mmol/L (136-145)
[2020-04-16 07:00] VITALS: BP 107/69; PULSE 80; RESP 18; TEMP 36.7; O2SAT 92
[2020-04-16] MEDS: pantoprazole DR 40 mg Tablet 20 MG PO (08:54)
--- NOTE | 2020-04-16 10:47 | P.PN_ITS ---
Subjective Subjective: Interval history: Patient reports feeling better. She denies shortness of breath or chest pain. Denies abdominal pain. Reports that she usually can feed herself. She was able to move her right upper extremity but was unable to move her left upper and both lower extremities. Her white blood cell count improved. Platelets continue to decline. Her urine shows evidence of UTI and growing gram-negative belgica same as blood cultures. Vitals/I&O/Wt Last Vital Signs Temp 98.1 F 04/16/20 07:00 Pulse 80 04/16/20 07:00 Resp 18 04/16/20 07:00 BP 107/69 04/16/20 07:00 Pulse Ox 92 04/16/20 07:00 04/15/20 04/16/20 04/16/20 22:59 06:59 14:59 Intake Total 1100 / 1100 100 / 1200 120 / 120 Output Total 375 / 375 Balance 1100 / 1100 -275 / 825 120 / 120 Weight last 48 hrs Weight 77.111 kg Physical Exam Const: COMMON NORMALS: no acute distress Resp: COMMON NORMALS: normal respiratory effort and clear to auscultation bilaterally AUSCULTATION: clear to auscultation bilaterally Cardio: COMMON NORMALS: regular rate, regular rhythm and S2 normal heart sound present RATE: regular rate RHYTHM: regular rhythm HEART SOUNDS: S2 normal heart sound present OTHER: No lower extremity edema GI: COMMON NORMALS: Normal to inspection, nondistended, normoactive bowel sounds present, Soft to palpation and non-tender PALPATION: Yes Soft to palpation Urinary Catheter Management^: Au: Cath Placed During This Visit: yes Reason for Continuing Indwelling Catheter: Acute Urinary Retention or Obstruction Urinary Catheter Date of Insertion: 04/15/20 Urinary Catheter Time of Insertion: 18:57 Data : 04/16/20 04:22 04/16/20 04:22 Micro: Microbiology 04/15/20 18:54 Blood Culture - Preliminary Blood SPECIMEN COLLECTED 04/15/20 18:58 Blood Culture - Preliminary Blood SPECIMEN COLLECTED A&P Assessment and plan (1) Sepsis: Status: Acute Qualifiers: Sepsis acute organ dysfunction status: unspecified Sepsis type: sepsis due to unspecified organism Qualified Code(s): A41.9 - Sepsis, unspecified organism (2) Acute pyelonephritis: Status: Acute (3) Bacteremia due to Gram-negative bacteria: Status: Acute Additional A&P Information Parkinson's disease: I would continue Nikos Has cogwheel rigidity of lower extremities She is on dysphagia diet secondary to stroke in the past No acute decompensation for her vascular dementia, no active delirium DVT prophylaxis: Lovenox Dysphagia diet DNR/DNI Covid test done at the custodial was negative today PLAN: Continue current monitoring and treatment. Awaiting culture results. Attestations Medical Necessity Statement*: Patient with acute pyelonephritis and bacteremia requires close inpatient monitoring and treatment till deemed safe for discharge. Time Spent in Patient Care: 16 - 35 minutes Coding Level of Care Code Acute Email Developer for g Fwd Diagnoses Sepsis A41.9 Sepsis acute organ dysfunction status: unspecified Sepsis type: sepsis due to unspecified organism Acute pyelonephritis N10 Bacteremia due to Gram-negative bacteria R78.81
[2020-04-16 11:00] VITALS: BP 112/72; PULSE 82; RESP 18; TEMP 36.7; O2SAT 92
[2020-04-16 15:00] VITALS: BP 130/83; PULSE 75; RESP 18; TEMP 36.8; O2SAT 95
[2020-04-16 19:00] VITALS: BP 143/86; PULSE 80; RESP 20; TEMP 37.2; O2SAT 93
[2020-04-16 23:00] VITALS: BP 129/85; PULSE 78; RESP 21; TEMP 36.6; O2SAT 91
[2020-04-17 03:00] VITALS: BP 124/86; PULSE 73; RESP 19; TEMP 36.8; O2SAT 92
[2020-04-17 07:00] VITALS: BP 156/90; PULSE 67; RESP 22; TEMP 36.8; O2SAT 91
[2020-04-17 08:15] LABS: Basophils # 0.1 10^3/uL (0.0-0.1); Basophils % 0.5 %; Eosinophils # 0.2 10^3/uL (0.0-0.8); Eosinophils % 1.7 %; Hematocrit 42.2 % (37.0-47.0); Hemoglobin 13.3 g/dL (11.5-15.3); Lymphocytes # 1.1 10^3/uL (0.8-4.8); Lymphocytes % 11.3 %; Mean Corpuscular HGB Conc 31.5 g/dL (30.0-36.0); Mean Platelet Volume 12.5 fL (7.4-10.4); Monocytes # 0.5 10^3/uL (0.2-0.9); Monocytes % 5.3 %; Neutrophils # 8.11 10^3/uL (1.8-7.7); Neutrophils % 80.7 %; Nucleated Red Blood Cells % 0 %; Platelet Count 141 10^3/cmm (130-400); Red Blood Count 4.44 10^6/uL (4.1-5.3); Red Cell Distribution Width 12.8 % (12.1-15.1); White Blood Count 10.1 10^3/uL (4.0-10.0)
[2020-04-17 08:45] LABS: Alanine Aminotransferase 15 U/L (0-33); Albumin Level 2.7 g/dL (3.5-5.2); Alkaline Phosphatase 122 IU/L (35-105); Anion Gap 13.9 (5-19); Aspartate Amino Transferase 19 U/L (0-32); Blood Urea Nitrogen 7 mg/dL (8-23); Calcium 8.6 mg/dL (8.5-10.5); Carbon Dioxide 22 mmol/L (22-29); Chloride 110 mmol/L (98-107); Globulin 2.4 g/dL (1.3-4.6); Glucose 77 mg/dL (65-115); Osmolality Calculated 291 mOsm/kg (285-295); Potassium 3.9 mmol/L (3.5-5.1); Sodium 142 mmol/L (136-145); Total Bilirubin 0.4 mg/dL (0.15-1.2); Total Protein 5.1 g/dL (6.6-8.7)
[2020-04-17] MEDS: sodium chloride 0.9% 1,000 ML 75 ML IV ×2 (10:03→23:26)
[2020-04-17] MEDS: nystatin powder 15 gm Btl 1 APPLIC TOPICAL ×2 (10:13→17:53)
[2020-04-17] MEDS: pantoprazole DR 40 mg Tablet 20 MG PO (10:14)
[2020-04-17 11:00] VITALS: BP 148/91; PULSE 79; RESP 16; TEMP 36.6; O2SAT 91
[2020-04-17 15:00] VITALS: BP 134/87; PULSE 83; RESP 18; TEMP 36.7; O2SAT 92
--- NOTE | 2020-04-17 15:08 | P.PN_ITS ---
Subjective Subjective: Interval history: Patient denies shortness of breath or chest pain. Her urine is growing gram-negative rods. WBC improved. She appears much more alert but did not answer when I asked her location. Vitals/I&O/Wt Last Vital Signs Temp 97.9 F 04/17/20 11:00 Pulse 79 04/17/20 11:00 Resp 16 04/17/20 11:00 BP 148/91 04/17/20 11:00 Pulse Ox 91 04/17/20 11:00 04/17/20 04/17/20 04/17/20 06:59 14:59 22:59 Intake Total 1100 / 2520 100 / 100 Output Total 1700 / 2480 700 / 700 Balance -600 / 40 -600 / -600 Weight last 48 hrs Weight 77.111 kg Physical Exam Const: COMMON NORMALS: no acute distress Resp: COMMON NORMALS: normal respiratory effort and clear to auscultation bilaterally AUSCULTATION: clear to auscultation bilaterally Cardio: COMMON NORMALS: regular rate, regular rhythm and S2 normal heart sound present RATE: regular rate RHYTHM: regular rhythm HEART SOUNDS: S2 normal heart sound present OTHER: No lower extremity edema GI: COMMON NORMALS: Normal to inspection, nondistended, normoactive bowel sounds present, Soft to palpation and non-tender PALPATION: Yes Soft to palpation Urinary Catheter Management^: Au: Cath Placed During This Visit: yes Reason for Continuing Indwelling Catheter: Assist Healing of Perineal & Sacral Wounds- Incontinent Patients Urinary Catheter Date of Insertion: 04/15/20 Urinary Catheter Time of Insertion: 18:57 Data : 04/17/20 07:35 04/17/20 07:35 Micro: Microbiology 04/15/20 19:06 Urine Culture - Preliminary Urine,Clean Catch Gram Negative Rods 04/15/20 18:58 Blood Culture - Preliminary Blood NEGATIVE TO DATE 04/15/20 18:54 Blood Culture - Preliminary Blood NEGATIVE TO DATE A&P Assessment and plan (1) Sepsis: Status: Acute Qualifiers: Sepsis acute organ dysfunction status: unspecified Sepsis type: sepsis due to unspecified organism Qualified Code(s): A41.9 - Sepsis, unspecified organism (2) Acute pyelonephritis: Status: Acute (3) Bacteremia due to Gram-negative bacteria: Status: Acute Additional A&P Information Parkinson's disease: I would continue Sinemet Has cogwheel rigidity of lower extremities She is on dysphagia diet secondary to stroke in the past No acute decompensation for her vascular dementia, no active delirium DVT prophylaxis: Lovenox Dysphagia diet DNR/DNI [facility] PLAN: Continue current monitoring and treatment. Awaiting culture results. If continues to improve we will likely be able to dismiss patient back to nursing facility tomorrow. Attestations Medical Necessity Statement*: Patient with UTI and sepsis requires close inpatient monitoring and treatment until deemed safe for discharge. Coding Level of Care Code Acute Vocational Rehabilitation Technician for [facility] Fwd Diagnoses Sepsis A41.9 Sepsis acute organ dysfunction status: unspecified Sepsis type: sepsis due to unspecified organism Acute pyelonephritis N10 Bacteremia due to Gram-negative bacteria R78.81
[2020-04-17 19:13] VITALS: BP 139/89; PULSE 82; RESP 17; TEMP 37.1; O2SAT 90
[2020-04-17 23:00] VITALS: BP 123/83; PULSE 83; RESP 18; TEMP 36.6; O2SAT 91
[2020-04-17] MEDS: enoxaparin 40 mg/0.4 mL Syringe SUBCUT (23:24)
[2020-04-18 03:00] VITALS: BP 148/84; PULSE 74; RESP 18; TEMP 36.9; O2SAT 91
[2020-04-18 05:11] LABS: Basophils # 0.1 10^3/uL (0.0-0.1); Basophils % 0.9 %; Eosinophils # 0.2 10^3/uL (0.0-0.8); Eosinophils % 2.7 %; Hematocrit 42.8 % (37.0-47.0); Hemoglobin 13.6 g/dL (11.5-15.3); Lymphocytes # 1.4 10^3/uL (0.8-4.8); Lymphocytes % 17.6 %; Mean Corpuscular HGB Conc 31.8 g/dL (30.0-36.0); Mean Corpuscular Hemoglobin 30.3 pg (28.0-34.0); Mean Corpuscular Volume 95.3 fL (81-99); Mean Platelet Volume 12.3 fL (7.4-10.4); Monocytes # 0.5 10^3/uL (0.2-0.9); Monocytes % 5.7 %; Neutrophils # 5.71 10^3/uL (1.8-7.7); Neutrophils % 72.7 %; Nucleated Red Blood Cells % 0 %; Platelet Count 157 10^3/cmm (130-400); Red Blood Count 4.49 10^6/uL (4.1-5.3); Red Cell Distribution Width 12.6 % (12.1-15.1); White Blood Count 7.9 10^3/uL (4.0-10.0)
--- NOTE | 2020-04-18 05:25 | PC.NURSE ---
SHIFT SUMMARY Has rested well. Very little verbalization by pt. Is confused. Does not move self in bed and has been repositioned. Takes meds crushed in pudding well and will drink small amts of water when offered. Good urine output per Au. IV infusing at 75mlhr rate
[2020-04-18 05:29] LABS: Alanine Aminotransferase < 5 U/L (0-33); Albumin Level 2.7 g/dL (3.5-5.2); Alkaline Phosphatase 118 IU/L (35-105); Anion Gap 12.9 (5-19); Aspartate Amino Transferase 14 U/L (0-32); Blood Urea Nitrogen 6 mg/dL (8-23); Calcium 8.3 mg/dL (8.5-10.5); Carbon Dioxide 22 mmol/L (22-29); Chloride 108 mmol/L (98-107); Globulin 2.7 g/dL (1.3-4.6); Glucose 71 mg/dL (65-115); Magnesium 2.1 mg/dL (1.7-2.3); Osmolality Calculated 284 mOsm/kg (285-295); Potassium 3.9 mmol/L (3.5-5.1); Sodium 139 mmol/L (136-145); Total Bilirubin 0.5 mg/dL (0.15-1.2); Total Protein 5.4 g/dL (6.6-8.7)
[2020-04-18 07:00] VITALS: BP 130/80; PULSE 78; RESP 20; TEMP 36.4; O2SAT 92
[2020-04-18] MEDS: pantoprazole DR 40 mg Tablet 20 MG PO (07:56)
[2020-04-18] MEDS: nystatin powder 15 gm Btl 1 APPLIC TOPICAL (07:57)
[2020-04-18] MEDS: tamsulosin 0.4 mg Capsule PO (07:57)
--- NOTE | 2020-04-18 09:10 | PC.SOCIAL ---
IMM Page 2 of IMM given to patient. Initialed, dated, and timed and placed in chart.
[2020-04-18 11:00] VITALS: BP 131/86; PULSE 84; RESP 20; TEMP 36.4; O2SAT 92
--- NOTE | 2020-04-18 12:20 | PM.DCS ---
Discharge Providers Date of Admission: 04/15/20 21:41 Date of Discharge: April 18, 2020 Attending Provider at Admission: Dyan Lizama MD Attending Provider at Discharge: Jak Costa MD Diagnoses at Discharge Discharge Diagnosis (1) Sepsis: Status: Acute Qualifiers: Sepsis acute organ dysfunction status: unspecified Sepsis type: sepsis due to unspecified organism Qualified Code(s): A41.9 - Sepsis, unspecified organism (2) Acute pyelonephritis: Status: Acute (3) Bacteremia due to Gram-negative bacteria: Status: Acute Reason for Visit Reason for Visit: SEPSIS Hospital Course Discharge Summary: Patient presented from nursing facility after recent discharge with the patient's blood cultures growing gram-negative belgica. Patient diagnosed with acute pyelonephritis and bacteremia was treated with antibiotics and gradually improved. She responded well to ceftriaxone therefore I will continue patient on Omnicef for 10 more days. Patient has underlying dementia and is not very communicative. She denied any shortness of breath or chest pain this morning denies any abdominal pain. She had good bowel movement and urinated without difficulty after her Au catheter was removed. Given clinical improvement we will go ahead and dismiss patient back to nursing facility. I will add Flomax to hopefully prevent future UTIs. Patient's blood pressure will need to be monitored at nursing facility to make sure it is not dropping. Physical Exam Const: COMMON NORMALS: no acute distress Resp: COMMON NORMALS: normal respiratory effort and clear to auscultation bilaterally AUSCULTATION: clear to auscultation bilaterally Cardio: COMMON NORMALS: regular rate, regular rhythm and S2 normal heart sound present RATE: regular rate RHYTHM: regular rhythm HEART SOUNDS: S2 normal heart sound present OTHER: No lower extremity edema GI: COMMON NORMALS: Normal to inspection, nondistended, normoactive bowel sounds present, Soft to palpation and non-tender PALPATION: Yes Soft to palpation Urinary Catheter Management^: Au: Cath Placed During This Visit: yes, but has since been removed by the nurse Reason for Continuing Indwelling Catheter: Assist Healing of Perineal & Sacral Wounds- Incontinent Patients Urinary Catheter Date of Insertion: 04/15/20 Urinary Catheter Time of Insertion: 18:57 Date Urinary Catheter Removed: 04/18/20 Time Urinary Catheter Discontinued: 10:00 Discharge Data Data Completed and Pending: Completed Studies During Hospitalization Category Date Time Status XR chest 1V jorge ble [id number] Stat Exams 04/15/20 18:15 Completed Pending at discharge Category Date Time Status Blood Culture Sta t Lab 04/15/20 18:54 Results Complete Blood Co unt w/Auto AM LABS Lab 04/19/20 04:00 Ordered Complete Blood Co unt w/Auto AM LABS Lab 04/20/20 04:00 Ordered Comprehensive Met abolic Panel AM LA BS Lab 04/19/20 04:00 Ordered Comprehensive Met abolic Panel AM LA BS Lab 04/20/20 04:00 Ordered Magnesium AM LABS Lab 04/19/20 04:00 Ordered Magnesium AM LABS Lab 04/20/20 04:00 Ordered Labs from last 24 hours 04/18/20 04/18/20 04:20 04:20 WBC 7.9 RBC 4.49 Hgb 13.6 Hct 42.8 MCV 95.3 MCH 30.3 MCHC 31.8 RDW 12.6 Plt Count 157 MPV 12.3 H Neut % (Auto) 72.7 Lymph % (Auto) 17.6 [place] % (Auto) 5.7 Eos % (Auto) 2.7 Baso % (Auto) 0.9 Neut # (Auto) 5.71 Lymph # (Auto) 1.4 [place] # (Auto) 0.5 Eos # (Auto) 0.2 Baso # (Auto) 0.1 Nucleated RBC % (a uto) 0 Nucleated RBCs # 0.0 Sodium 139 Potassium 3.9 Chloride 108 H Carbon Dioxide 22 Anion Gap 12.9 BUN 6 L Creatinine 0.5 GFR Calculation Not Reportable Glucose 71 Calculated Osmolal ity 284 L Calcium 8.3 L Magnesium 2.1 Total Bilirubin 0.5 AST 14 ALT < 5 Alkaline Phosphata se 118 H Total Protein 5.4 L Albumin 2.7 L Globulin 2.7 Vitals: Last Vital Signs Temp 97.6 F 04/18/20 11:00 Pulse 84 04/18/20 11:00 Resp 20 H 04/18/20 11:00 BP 131/86 04/18/20 11:00 Pulse Ox 92 04/18/20 11:00 Discharge Plan Discharge Patient Disposition: Xfer SNF Condition: Stable Prescriptions: New nystatin [Nystop] 100,000 unit/gram Powder 1 applic topical BID Qty: 1 RF: 0 carbidopa-levodopa 10-100 mg Tablet 1 ea PO TID Qty: 90 RF: 0 tamsulosin 0.4 mg Capsule 0.4 mg PO DAILY Qty: 30 RF: 0 cefdinir 300 mg capsule 300 mg PO BID 5 Days Qty: 20 RF: 0 Continued ondansetron HCl [Zofran] 4 mg tablet 4 mg PO QID PRN (Reason: nausea and vomiting) Qty: 14 RF: 0 Tylenol Extra Strength 500 mg Tablet 500 mg PO Q6H PRN (Reason: Pain) RF: 0 Enema Disposable 19-7 gram/118 mL Enema 118 ml GA DAILY PRN (Reason: Constipation) RF: 0 bisacodyl 10 mg Suppository 10 mg GA DAILY PRN (Reason: Constipation) RF: 0 Milk of Magnesia 400 mg/5 mL Suspension 400 mg PO DAILY PRN (Reason: Constipation) RF: 0 Discontinued cephalexin [Keflex] 500 mg capsule 500 mg PO Q6H 7 Days Qty: 28 RF: 0 Discharge Orders: Discharge Order (Routine); Ordered 04/18/20 Ordered By: Jak Costa Discharge Diet: Advance as tolerated Discharge Activity: Increase activity as tolerated Activity Restrictions/Additional Instructions: Please call your doctor or present to emergency department if your condition worsens or you develop diarrhea, lightheadedness, fatigue or see blood in your stool or black stool. Please keep blood pressure and heart rate log 3 times daily to present to primary care physician next visit for medication adjustment. Discharge Attestations Time Spent in Discharge Care*: greater than 30 min Quality Metrics Clinical Quality Measures During this hospital stay, did patient experience: None Coding Level of Care Code Acute [employer] for [facility] Diagnoses Sepsis A41.9 Sepsis acute organ dysfunction status: unspecified Sepsis type: sepsis due to unspecified organism Acute pyelonephritis N10 Bacteremia due to Gram-negative bacteria R78.81
[2020-04-18 13:31] LABS: SARS Covid-2 Antigen Negative (Negative)
--- NOTE | 2020-04-18 14:21 | PC.NURSE ---
[place] Praveena Mcdonald [place] [facility] [place] and belongings are with patient. DIA Brody with [employer] has notified Transport that patient is ready for transfer and we are awaiting gurney to [place] AMBER MCKINNEY
[2020-04-18 15:21] VITALS: BP 131/86; PULSE 84; RESP 20; TEMP 36.4; O2SAT 92
== END 2020-04-18 15:10 | disposition skilled nursing facility (03) | DRG 872 ==
LOC: ER 18:32 → MEDSURG 21:58
PROVIDERS: Emergency Medicine; Admitting Provider Internal Medicine; Visit Provider Internal Medicine
DX: A41.9 Sepsis, unspecified organism (principal); I69.954 Hemiplegia and hemiparesis following unspecified cerebrovascular disease affecting left non-dominant side; N10 Acute pyelonephritis; F01.50 Vascular dementia, unspecified severity, without behavioral disturbance, psychotic disturbance, mood disturbance, and anxiety; G20 Parkinson's disease; I69.991 Dysphagia following unspecified cerebrovascular disease; R13.10 Dysphagia, unspecified; K59.00 Constipation, unspecified; R32 Unspecified urinary incontinence
CPT/HCPCS: 12345; 36415; 51702; 71045; 74177; 80048; 80053; 81001; 83605; 83690; 83735; 84484; 85025; 85610; 87040; 87077; 87086; 87186; 87426; 87804; 93005; 96365; 96372; 96375; 99283; 99284; J0696; J0743; J1650; J2405; J3370; J7030; J7050; Q9967